=== PATIENT | female | born 1985 | race Caucasian/White ===

== ENCOUNTER 2018-07-14 01:33 | Emergency (ER) | payer BC | END 2018-07-14 02:19 | disposition home or self-care (01) | LOC: NAV ERS 01:33 | DX: O99.89 Other specified diseases and conditions complicating pregnancy, childbirth and the puerperium (principal); H60.91 Unspecified otitis externa, right ear; O99.342 Other mental disorders complicating pregnancy, second trimester; F41.9 Anxiety disorder, unspecified; F32.9 Major depressive disorder, single episode, unspecified; Z87.891 Personal history of nicotine dependence; Z3A.00 Weeks of gestation of pregnancy not specified | CPT/HCPCS: 99282 ==